=== PATIENT | female | born 1935 | race Caucasian/White ===

== ENCOUNTER 2017-07-25 10:10 | Inpatient (IN) | payer MEDICARE ==
[2017-07-25 11:04] LABS: #Basophils 0.1 thou/uL (0.0-0.2); #Eosinphils 0.1 thou/uL (0.0-0.7); #Lymphocytes 1.6 thou/uL (1.20-3.40); #Monocytes 0.7 thou/uL (0.11-0.59); #Neutrophils 8.7 thou/uL (1.40-6.50); %Basophils 0.8 % (0.0-1.0); %Eosinophils 1.1 % (0.0-10.0); %Lymphocytes 14.4 % (21.0-51.0); %Monocytes 6.6 % (0.0-10.0); Hematocrit 43.8 % (36.0-47.0); Mean Platelet Volume 6.7 fL (7.4-10.4); Red Blood Cell (RBC) Count 4.77 mill/uL (4.20-5.40); White Blood Cell (WBC) Count 11.3 thou/uL (4.8-10.8)
[2017-07-25 11:23] LABS: ALT (SGPT) 15 U/L (8-55); AST (SGOT) 21 U/L (5-34); Alkaline Phosphatase 47 U/L (40-150); Anion Gap 12 mmol/L (10-20); BUN (Urea Nitrogen) 22 mg/dL (9.8-20.1); Bilirubin, Total 0.3 mg/dL (0.2-1.2); Calc. Creatinine Clearance 0 mL/min (70-130); Calcium 9.2 mg/dL (7.8-10.44); Carbon Dioxide 21 mmol/L (23-31); Chloride 107 mmol/L (98-107); Estimated GFR-MDRD 40; Globulin 3.4 g/dL (2.4-3.5); Protein, Total 7.1 g/dL (6.0-8.3)
[2017-07-25 11:27] LABS: PTT 24.1 SEC (22.9-36.1); Prothrombin Time 13.8 SEC (12.0-14.7)
[2017-07-25 12:03] LABS: Troponin I Less than 0.010 ng/mL (< 0.028)
--- NOTE | 2017-07-25 13:06 | CT ---
CT OF THE BRAIN WITHOUT CONTRAST: Date: 07/25/17 COMPARISON: None. HISTORY: Syncope. Lightheadedness and dizziness. TECHNIQUE: Multiple contiguous axial images were obtained in a CT of the brain without contrast. FINDINGS: There are scattered hypodensities in the subcortical and periventricular white matter. 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 There is no perico dence of hydrocephalus, intracranial hemorrhage, or extra-axial fluid collection. No new large confl uent infarction is seen. The calvarium and overlying soft tissues are unremarkable. The visualized paranasal sinuses and mast oid air cells are well aerated. IMPRESSION: No evidence of acute intracranial abnormality. POS: [facility]
--- NOTE | 2017-07-25 13:08 | RAD ---
SINGLE VIEW OF CHEST: Date: 07/25/17 COMPARISON: None. HISTORY: Syncope and fall. FINDINGS: Single view of the chest shows a normal sized cardiomediastinal silhouette. There is no evidence of consolidation, mass, or pleural effusion. The bones are unremarkable. IMPRESSION: No evidence of acute cardiopulmonary disease. POS: [facility]
[2017-07-25 13:47] LABS: Bilirubin Negative (Negative); Blood, Urine Negative (Negative); Glucose, Urine (Dipstick) Negative (Negative); Ketone, Urine Negative (Negative); Nitrite Positive (Negative); Protein, Urine (Dipstick) Trace mg/dL (Neg-Trace); Urobilinogen 0.2 mg/dL (0.2-1.0)
[2017-07-25 13:51] LABS: Bacteria/HPF 1+ HPF (None Seen); RBC/HPF 0-3 HPF (0-3); Squamous Epithelial 0-3 HPF (0-3)
[2017-07-25 13:53] LABS: Hyaline Casts/LPF 0-3 HYALINE CAST LPF (0-3 Hyaline)
[2017-07-25 14:26] LABS: ALT (SGPT) 18 U/L (8-55); AST (SGOT) 30 U/L (5-34); Alkaline Phosphatase 46 U/L (40-150); Anion Gap 15 mmol/L (10-20); BUN (Urea Nitrogen) 22 mg/dL (9.8-20.1); Bilirubin, Total 0.2 mg/dL (0.2-1.2); Calc. Creatinine Clearance 0 mL/min (70-130); Calcium 9.2 mg/dL (7.8-10.44); Carbon Dioxide 20 mmol/L (23-31); Chloride 106 mmol/L (98-107); Estimated GFR-MDRD 46; Globulin 3.9 g/dL (2.4-3.5); Magnesium 2.5 mg/dL (1.6-2.6); Protein, Total 7.7 g/dL (6.0-8.3); Troponin I Less than 0.010 ng/mL (< 0.028)
[2017-07-25] MEDS ORDERED: traZODone HCl 50 MG TAB PO PRN (15:00)
[2017-07-25] MEDS ORDERED: Loperamide HCl 2 MG CAP PO PRN (15:00)
[2017-07-25] MEDS ORDERED: Ondansetron HCl/PF 4 MG/2 ML Vial IVP PRN (15:00)
[2017-07-25] MEDS ORDERED: Milk Of Magnesia 30 ML UDCUP PO PRN (15:00)
[2017-07-25] MEDS ORDERED: Mag-Al 1200 mg/1200 mg/30 ML UDCUP PO PRN (15:00)
[2017-07-25] MEDS ORDERED: Nitroglycerin 0.4 MG TAB (25 Tab Bottle) SL PRN (15:00)
[2017-07-25] MEDS ORDERED: Loratadine 10 MG TAB PO PRN (15:00)
[2017-07-25] MEDS ORDERED: HYDROcodone/Acetaminophen 5/325 mg Tablet PO PRN (15:00)
[2017-07-25] MEDS ORDERED: Artificial Tear Sol 15 ML BOT EA EYE PRN (15:00)
[2017-07-25] MEDS ORDERED: Sodium Chloride 0.65% Nasal 44 ML BOT EA NARE PRN (15:00)
[2017-07-25] MEDS ORDERED: Senokot 8.6 MG TAB PO PRN (15:00)
[2017-07-25] MEDS ORDERED: Eucerin (Mineral Oil/Petrolatum,White) 30 gm Jar TOP PRN (15:00)
[2017-07-25] MEDS ORDERED: Ondansetron ODT 4 MG TAB PO PRN (15:00)
[2017-07-25] MEDS ORDERED: Diabetic Tussin 200 MG/10 ML UDCUP PO PRN (15:00)
[2017-07-25] MEDS ORDERED: Zolpidem Tartrate 5 MG TAB PO PRN (15:00)
--- NOTE | 2017-07-25 15:58 | HP ---
PRIMARY CARE PHYSICIAN: Dr. Bhanu Luis in [facility] in [place]. REASON FOR ADMISSION: Syncope. HISTORY OF PRESENT ILLNESS: An 82-year-old female who has history of hypertension who is visiting locally to her daughter. This morning around 8:30 , she was seated in the chair. All of suddenly, she felt lightheaded and dizzy , and she passed out. The patient remained passed out for a period of time about few minutes. At that time, patient was groggy, just like postictal phase. Family member does not know about focal tonic clonic seizure activity. Paramedics were called and when the paramedics came to her home, at that time, she was awake, but lethargic and weak. Family member also reported that she had one episode of vomiting. Paramedics reported that patient had very low blood pressure at her home. With these symptoms, she was brought to emergency room for evaluation. Patient also had similar type of problem few months ago. At that time, she was hospitalized in [place] and full workup was done. Family member reported that at that time patient was found with right carotid stenosis, required carotid endarterectomy and patient is taking blood thinner medicine. The patient denies any nausea. She denies any chest pain, palpitation. She denies any UTI symptoms. She denies any constipation, diarrhea, melena or hematochezia. She denies any cough, pleuritic chest pain, hemoptysis, fever or chills. Paramedics gave her about 1 liter of IV fluid. When she came to emergency room , she was normotensive. Routine blood tests showed elevated D-dimer and that is why the patient is getting CT angio by the time of dictation. Patient is completely normal at this point, unable to provide all detailed history, the patient does not have any recall of that event, but when she regained consciousness since then, she remembers everything. She denies any focal motor or sensory symptoms. She denies any headache. She denies any speech problem. REVIEW OF SYSTEMS: The following complete review of systems was negative, unless otherwise mentioned in the HPI or below: Constitutional: Weight loss or gain, ability to conduct usual activities. Skin: Rash, itching. Eyes: Double vision, pain. ENT/Mouth: Nose bleeding, neck stiffness, pain, tenderness. Cardiovascular: Palpitations, dyspnea on exertion, orthopnea. Respiratory: Shortness of breath, wheezing, cough, hemoptysis, fever or night sweats. Gastrointestinal: Poor appetite, abdominal pain, heartburn, nausea, vomiting, constipation, or diarrhea. Genitourinary: Urgency, frequency, dysuria, nocturia. Musculoskeletal: Pain, swelling. Neurologic/Psychiatric: Anxiety, depression. Allergy/Immunologic: Skin rash, bleeding tendency. Please see my HPI for pertinent positive and negative. All other review of systems reviewed and negative except as mentioned in the HPI. PAST MEDICAL HISTORY: Coronary artery disease, history of CHF, type CHF is not known because patient is not able to provide detailed history about echocardiography, hypertension, dyslipidemia, history of CVA, history of seizure , history of carotid stenosis, hypothyroidism. PAST PSYCHIATRIC HISTORY: Anxiety, depression, and insomnia. PAST SURGICAL HISTORY: Right carotid endarterectomy, cholecystectomy, appendicectomy, hysterectomy, tonsillectomy, right hip surgery, right arm and left wrist surgery, lumbar spine surgery. SOCIAL HISTORY: Patient lives at home, currently visiting in our town. No history of tobacco, alcohol or illicit drug abuse. FAMILY HISTORY: No strong family history of premature coronary artery disease, stroke or cancer. ALLERGIES: No known drug allergies. CURRENT HOME MEDICATIONS: Lipitor 10 mg p.o. at bedtime, hydralazine 100 mg p.o. daily, Synthroid 25 mcg p.o. daily, lisinopril 40 mg p.o. daily, metoprolol tartrate 50 mg p.o. daily, Seroquel 50 mg p.o. at bedtime., sulfasalazine 1 gram p.o. b.i.d., trazodone 50 mg q.6 hourly p.r.n., Ambien 10 mg p.o. at bedtime p.r.n., ropinirole 0.5 mg p.o. daily, and Primidone 50 mg p.o. daily. EMERGENCY ROOM COURSE: Reviewed. PHYSICAL EXAMINATION: VITAL SIGNS: On arrival, blood pressure 117/41, pulse 57, respiratory rate 18, temperature 98.0, saturation 92% on room air, weight 61.2 kilograms. GENERAL: Patient is currently alert, awake, no obvious acute distress. HEAD: Normocephalic, atraumatic. EYES: Pupils round, reactive to light. Extraocular muscle intact. ENT: Oropharynx within normal limits. Moist mucous membranes. No oral lesions. No pharyngeal erythema, no exudate. NECK: Supple. The patient does have a scar for right carotid endarterectomy on the right side. No JVD. No lymphadenopathy, no meningeal signs of irritation. No spinal tenderness. LUNGS: Clear to auscultation without any rhonchi or rales. CARDIAC: S1, S2 regular. Unable to elicit any murmur, no gallop, no rub. ABDOMEN: Soft, bowel sounds present, nontender, nondistended. No organomegaly , no mass, no suprapubic tenderness. BACK: Examination unremarkable, no CVA tenderness. EXTREMITIES: Upper extremity passive movements of all joints are normal. Lower extremity, passive movement of all joints are normal. No edema, good peripheral pulsation. SKIN: No skin rash. HEMATOLOGICAL SYSTEM: No lymphadenopathy. PSYCHIATRIC: Normal affect. IMAGING AND SIGNIFICANT LABORATORY DATA: 1. EKG based on my review reveals normal sinus rhythm within normal limits. CT brain based on my review, no acute intracranial process. Chest x-ray based on my review, no acute cardiopulmonary process. We are going to do CT angiography and result is pending by the time of dictation. 2. CBC: WBC 11.3, hemoglobin 14.2, and platelet 295. INR 1.0. D-dimer 1.04. BMP: Sodium 136, potassium 4.1, chloride 107, carbon dioxide 21, anion gap 12 , BUN 22, creatinine 1.27, glucose 143, calcium 9.2, magnesium 2.1. 3. LFT: AST 21, ALT 15, alkaline phosphatase 47, albumin 3.7, CK-MB 2.6, troponin I less than 0.010. ASSESSMENT AND PLAN/IMPRESSION: 1. Syncope/seizure. Based on patient's current description, patient was syncopized while seated and she had little bit prolonged postictal type of face and she has suspected history of generalized seizure as well. Given these, I will keep this patient on telemetry floor for observation. We will do cardiac monitoring to rule out any arrhythmia. We will check orthostatic vitals to rule out orthostatic hypotension, that is also another possibility. I will check CK, lactic acid and prolactin level as indirect marker of seizure. If abnormal, then we will consider Neurology evaluation, we are also doing CT angio to rule out PE given elevated D-dimer. We are going to obtain echocardiography for cardiac workup. We will also obtain carotid ultrasound to rule out any carotid stenosis. Further evaluation will defer based on above- mentioned investigation result. 2. Elevated D-dimer. As mentioned above, we are going to do CT angio to rule out pulmonary embolism. Patient does not have any calf tenderness, does not have any edema. 3. Chronic kidney disease stage 3. Patient does have elevated BUN and creatinine ratio, but patient already received IV fluids and given her history of congestive heart failure, I will avoid giving her more fluid, the patient's blood pressure is also normalized and will repeat basic metabolic panel tomorrow. 4. Dyslipidemia. We will check total CK and will continue with Lipitor 10 mg p.o. at bedtime. We will check lipid profile tomorrow morning for risk stratification. 5. Hypertension. Currently, the patient's blood pressure runs low and that is why we will check orthostatic hypotension and based on her vitals, we will decide to start one by one antihypertensive medication and we will titrate blood pressure medication while in hospital. 6. Hypothyroidism. We will continue Synthroid 25 mcg p.o. daily. 7. History of congestive heart failure, uncertain type of EF, we are going to obtain echocardiography and we will continue lisinopril and metoprolol when blood pressure permits. The patient is currently euvolemic clinically and I will also check BNP, history of carotid stenosis and required carotid endarterectomy. We will check carotid ultrasound and continue aspirin 81 mg p.o. daily. 8. History of anxiety and depression. The patient is taking Seroquel, trazodone, and Ambien at home which we will continue while in hospital. 10. ? history of Parkinson's. Patient is on ropinirole and primidone, we will continue that medication. 11. Deep venous thrombosis prophylaxis not needed because we are expecting discharge in 24 hours. 12. Gastrointestinal prophylaxis, Pepcid 20 mg p.o. b.i.d. 13. Code status: The patient is FULL CODE. Patient's daughter is surrogate decision maker. Disposition and plan within 24 hours. [facility]
--- NOTE | 2017-07-25 16:13 | CT ---
CTA OF THE CHEST WITH CONTRAST: Date: 07/25/17 COMPARISON: None. HISTORY: Syncope, lightheadedness, and dizziness. TECHNIQUE: Multiple contiguous axial images were obtained in a CTA of the chest with contrast per pulmonary emb olism protocol. 3D oblique MIP reformats and direct coronal reformats were performed. FINDINGS: The pulmonary arteries are well opacified without filling defects to suggest pulmonary emboli. The h eart is normal in size without focal cardiac abnormality. No hilar or mediastinal lymphadenopathy se en. There is a moderate to large hiatal hernia. A calcified granuloma is seen in the superior aspect of the left lower lobe. There is ground-glass opacity in the right hilar region which may represent an infiltrate. This looks non mass-like. No pn eumothorax or pleural effusion are seen. The central airways are intact without evidence of debris w ithin the airways. There is a nonobstructing calcification in the right kidney. The other visualized subdiaphragmatic structures are unremarkable. Degenerative changes are seen in the spine. The chest wall soft tissues are unremarkable. IMPRESSION: 1. No evidence of pulmonary thromboembolism. 2. Ground-glass opacities in the right hilar region may represent infectious infiltrate. This could also be secondary to aspiration. 3. Hiatal hernia. 4. Nonobstructing right renal calcification. POS: [facility]
[2017-07-25] MEDS ORDERED: sulfaSALAzine 500 MG TAB PO SCH (17:00)
[2017-07-25 17:09] LABS: Troponin I 0.011 ng/mL (< 0.028)
[2017-07-25 20:28] LABS: Troponin I Less than 0.010 ng/mL (< 0.028)
[2017-07-25] MEDS: Atorvastatin Calcium 10 MG TAB PO SCH (21:07)
[2017-07-25] MEDS: Acetaminophen 325 MG TAB PO PRN (21:13)
[2017-07-26] MEDS: Levothyroxine Sodium 25 MCG TAB PO SCH (05:24)
[2017-07-26 06:24] LABS: #Eosinphils 0.1 thou/uL (0.0-0.7); #Lymphocytes 2.7 thou/uL (1.20-3.40); #Monocytes 1.5 thou/uL (0.11-0.59); %Basophils 0.3 % (0.0-1.0); %Eosinophils 0.5 % (0.0-10.0); %Lymphocytes 20.4 % (21.0-51.0); %Monocytes 11.3 % (0.0-10.0); Hematocrit 36.6 % (36.0-47.0); Mean Platelet Volume 7.1 fL (7.4-10.4); Red Blood Cell (RBC) Count 4.03 mill/uL (4.20-5.40); White Blood Cell (WBC) Count 13.3 thou/uL (4.8-10.8)
[2017-07-26 06:43] LABS: Anion Gap 10 mmol/L (10-20); BUN (Urea Nitrogen) 21 mg/dL (9.8-20.1); Calc. Creatinine Clearance 43 mL/min (70-130); Carbon Dioxide 22 mmol/L (23-31); Chloride 106 mmol/L (98-107); Cholesterol 155 mg/dl (< 200 Desired); Estimated GFR-MDRD 58; LDL Cholesterol, Calculated 91 mg/dL
--- NOTE | 2017-07-26 07:37 | ULT ---
ULTRASOUND WITH DOPPLER DUPLEX CAROTID: Date: 07/25/17 HISTORY: 82-year-old female status post syncope. TECHNIQUE: Chin scale, color flow, and spectral analysis of major arteries of the neck. FINDINGS: Mild plaque is visualized at the right carotid bulb. The highest peak systolic velocity in the right internal carotid artery is 115 cm/s, with an endo-diastolic velocity of 30 cm/s. Right ICA/CCA rati o is 0.8. The right vertebral artery flow is antegrade. Heavily calcified plaque is present at the left carotid bulb. Blood flow is demonstrated in branches of the left external carotid artery. There is what appears to be bidirectional flow and a possible preocclusive thump at the very proximal left internal carotid artery stump. The left vertebral arter y flow is antegrade. IMPRESSION: 1. Large plaque at the left carotid bifurcation. 2. 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 3. No hemodynamically significant stenosis in the right internal carotid artery. POS: [facility]
--- NOTE | 2017-07-26 09:08 | PDOC.PN ---
- Subjective Encounter Start Date: 07/26/17 Encounter Start Time: 09:06 Subjective: Generalized weakness -: No lightheadedness,dizzines,f/c/,cp/sob - Objective Resuscitation Status: Resuscitation Status FULL:Full Resuscitation MAR Reviewed: Yes Vital Signs & Weight: Vital Signs (12 hours) Temp Pulse Resp BP BP BP Pulse Ox 07/26/17 04:00 98.1 F 61 16 121/58 L 117/57 L 102/51 L 92 L 07/25/17 23:44 99.2 F Weight Weight 126 lb 14.4 oz I&O: 07/25/17 07/26/17 07/27/17 06:59 06:59 06:59 Intake Total 620 Balance 620 Result Diagrams: 07/26/17 05:27 07/26/17 05:27 Phys Exam - Physical Examination Constitutional: NAD HEENT: PERRLA, moist MMs Neck: no nodes, no JVD Respiratory: no wheezing, no rales, clear to auscultation bilateral Cardiovascular: RRR, no significant murmur Gastrointestinal: soft, non-tender, positive bowel sounds Neurological: non-focal, moves all 4 limbs Psychiatric: normal affect Skin: no rash, normal turgor Dx/Plan (1) Syncope Code(s): R55 - SYNCOPE AND COLLAPSE Status: Acute - Plan Syncope vs. Seizure * will consult neurology (post ictal state described in H&P) * ECHO: pending * CT brain: no actue issue * CXR: no infiltrate * Elevated D dimer - CT angio: no PE * Carotid Dopplers: Large plaque at Left Carotid bifurcation, total/near complete occlusion of left ICA - will consult CV surgery * continue ASA and Statin * check labs in AM Dispo: continue inpt.
[2017-07-26] MEDS: Famotidine 20 MG TAB PO SCH (09:24)
--- NOTE | 2017-07-26 17:14 | CON ---
DATE OF CONSULTATION: 07/26/2017 HISTORY OF PRESENT ILLNESS: Ms. Ho is an 82-year-old woman who was admitted with syncope and h ypotension. She was rehydrated in the ambulance on the way here and has been normotensive with a no rmal neurologic exam since she has been admitted. Of note, she had a right carotid endarterectomy i [facility] recently. She has had a carotid ultrasound performed since she has been here that s hows a chronically occluded left carotid system with a widely patent right carotid. The patient has had no focal lateralizing neurologic symptoms since she has been here. PAST MEDICAL HISTORY: 1. Coronary artery disease. 2. Congestive heart failure. 3. Hypertension. 4. Dyslipidemia. 5. History of seizure. 6. Carotid stenosis status post right carotid endarterectomy. 7. Hypothyroidism. PAST SURGICAL HISTORY: 1. Right carotid endarterectomy. 2. Cholecystectomy. 3. Appendectomy. 4. Hysterectomy. 5. Tonsillectomy. 6. Right hip surgery. 7. Right arm and left wrist surgery. 8. Lumbar spine surgery. SOCIAL HISTORY: The patient lives at home and is currently visiting her daughter. She has no histo ry of tobacco or alcohol use. ALLERGIES: None. CURRENT MEDICATIONS: Noted. PHYSICAL EXAMINATION: GENERAL: This is an elderly woman resting comfortably in bed. VITAL SIGNS: Her height is 5 feet 2 inches, weight is 126 pounds, temperature is 98.8, pulse is 71 and regular and blood pressure is 171/75. NECK: Supple. Right carotid incision is healing nicely. CHEST: Clear bilaterally. HEART: Rhythm is regular. ABDOMEN: Soft. EXTREMITIES: No edema. ASSESSMENT AND PLAN: Status post right carotid endarterectomy with a widely patent right carotid sy stem and a chronically occluded left carotid. RECOMMENDATIONS: Medical treatment as is being carried out.
[2017-07-26] MEDS: Atorvastatin Calcium 10 MG TAB PO SCH (20:20)
[2017-07-26] MEDS: Acetaminophen 325 MG TAB PO PRN (20:20)
--- NOTE | 2017-07-27 00:48 | CON ---
DATE OF CONSULTATION: 07/26/2017 REFERRING PROVIDER: Tomas Soliz M.D. REASON FOR CONSULTATION: Syncope. HISTORY OF PRESENT ILLNESS: Ms. Ho is a pleasant 82-year-old female who has been con sulted for evaluation of syncopal event. History is obtained from the daughter who is present at e bedside. Daughter reports that yesterday morning she ate her breakfast and was sitting on the bianca ir and suddenly slumped over. She was unresponsive for a few minutes. There were no tonic-clonic c onvulsions. There was no tongue biting or loss of bowel or bladder function noted at that time. Th e daughter reported that prior to this event, she did vomit on 1-2 occasions and she has been having a low-grade fever during that time. She reports that she has a history of seizures sporadically ov er the past 5 years or so. Her last episode was in 2013. She has seen a neurologist in the past an d was noted to be started on primidone for her seizures. She also reports of having completely occl uded left internal carotid artery. In the past, she is also noted to have right ICA stenosis, for w isauroh she has undergone carotid endarterectomy. 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 She states that when the paramedics arrived on yesterday after they had called the EMS, they noticed that her blood pressure was very low. She does report of feeling better today and back to her normal self on today compared to yesterday. PAST MEDICAL HISTORY: Significant for hypertension, carotid artery disease, coronary artery disease , CHF, history of stroke, history of seizure, hypothyroidism, history of tremors. PAST SURGICAL HISTORY: Significant for right carotid endarterectomy, cholecystectomy, appendectomy, hysterectomy, tonsillectomy, right hip surgery, right arm and left wrist surgery, lumbar spine surg rupesh. SOCIAL HISTORY: She denies smoking, alcohol use, or illicit drug use. FAMILY HISTORY: Noncontributory. CURRENT MEDICATIONS: Please review MAR. ALLERGIES: No known drug allergies. REVIEW OF SYSTEMS: As mentioned in the HPI, otherwise negative. PHYSICAL EXAMINATION: VITAL SIGNS: Blood pressure of 170/73, pulse of 84, temperature of 100.3, respirations of 18, O2 sa ts of 94% on room air. GENERAL: Well-developed, well-nourished female in no apparent distress. RESPIRATORY: Clear to auscultation bilaterally. CARDIOVASCULAR: Regular rate and rhythm. NEUROLOGIC: Mental status: The patient is awake, alert, oriented x3. Speech and language: Fluent speech. Cranial nerves: Pupils are 3 mm and reactive. Visual stout are intact. Extraocular mus cles are intact. No nystagmus is noted. Face is symmetric. Tongue and uvula are midline. Motor e xam showed normal tone and bulk with 5/5 strength in both upper and lower extremities. Sensory: Se nsation is intact and symmetric. Deep tendon reflexes: 1-2+ reflexes in both upper and lower extre mities. Babinski: Plantar responses flexion bilaterally. Coordination: Intact to [id number] valentine tapping bilaterally. LABORATORY DATA: Reviewed, which included CBC, coag panel, D-dimer, CMP, lipid profile, and urinaly sis which is significant for WBC of 13.3, D-dimer of 0.84, sodium of 134, triglycerides of 165. Uri nalysis showed positive nitrites, large leukocyte esterase, greater than 50 to too numerous to count wbc's, and 1+ bacteria. IMAGING STUDIES: CT head without contrast was reviewed, which showed no acute intracranial abnormal ity. IMPRESSION: 1. Urinary tract infection. 2. Possible sepsis. 3. Syncope, likely related to possible sepsis. ASSESSMENT AND PLAN: Ms. Ho is a pleasant 82-year-old female who presented with a sy ncopal episode. Given the description of the patient's daughter and the fact that her blood pressur e was very low when EMS arrived, this is likely related to hypotension and not a seizure. I would r ecommend obtaining urine cultures and starting the patient on antibiotics for urinary tract infectio n. I have advised the patient's daughter that she needs to follow up with her neurologist as an out patient once discharged from the hospital to adjust her anti-seizure medications. No further neurol ogical workup needed from my standpoint. Thank you for your consultation.
[2017-07-27] MEDS: Levothyroxine Sodium 25 MCG TAB PO SCH ×2 (05:53→09:08)
[2017-07-27 06:04] LABS: #Eosinphils 0.2 thou/uL (0.0-0.7); #Lymphocytes 2.5 thou/uL (1.20-3.40); #Monocytes 1.4 thou/uL (0.11-0.59); #Neutrophils 6.6 thou/uL (1.40-6.50); %Basophils 0.4 % (0.0-1.0); %Eosinophils 1.7 % (0.0-10.0); %Lymphocytes 23.7 % (21.0-51.0); Hematocrit 36.5 % (36.0-47.0); Mean Platelet Volume 6.8 fL (7.4-10.4); Red Blood Cell (RBC) Count 4.03 mill/uL (4.20-5.40); White Blood Cell (WBC) Count 10.7 thou/uL (4.8-10.8)
[2017-07-27 06:08] LABS: Hemoglobin A1c 5.5 % (4.0-6.0)
[2017-07-27 06:33] LABS: Anion Gap 10 mmol/L (10-20); BUN (Urea Nitrogen) 16 mg/dL (9.8-20.1); Calc. Creatinine Clearance 44 mL/min (70-130); Calcium 8.9 mg/dL (7.8-10.44); Carbon Dioxide 25 mmol/L (23-31); Chloride 107 mmol/L (98-107); Cholesterol 166 mg/dl (< 200 Desired); Estimated GFR-MDRD 62; LDL Cholesterol, Calculated 109 mg/dL; Magnesium 1.9 mg/dL (1.6-2.6)
--- NOTE | 2017-07-27 08:20 | PDOC.PN ---
- Subjective Encounter Start Date: 07/27/17 Encounter Start Time: 08:16 Subjective: No Lightheadedness/LAMAR/blurry vision/dizziness -: No cp/palpitations - Objective Resuscitation Status: Resuscitation Status FULL:Full Resuscitation MAR Reviewed: Yes Vital Signs & Weight: Vital Signs (12 hours) Temp Pulse Resp BP Pulse Ox 07/27/17 04:00 98.4 F 74 20 131/59 L 95 07/27/17 00:00 99.1 F 74 16 142/65 H 96 Weight Weight 126 lb I&O: 07/26/17 07/27/17 07/28/17 06:59 06:59 06:59 Intake Total 620 1300 Output Total 4 Balance 620 1296 Result Diagrams: 07/27/17 05:38 07/27/17 05:38 Phys Exam - Physical Examination Constitutional: NAD HEENT: PERRLA, moist MMs Neck: no nodes, no JVD Respiratory: no wheezing, no rhonchi Cardiovascular: RRR, no significant murmur Gastrointestinal: soft, non-tender, positive bowel sounds Neurological: non-focal, moves all 4 limbs Skin: no rash, normal turgor Dx/Plan (1) Syncope Code(s): R55 - SYNCOPE AND COLLAPSE Status: Acute - Plan Syncope 2/2 Dehydration and UTI * neurology consulted - synocpe likely 2/2 to hypotension/UTI and not seizure - needs outpt neuro f/u for seizure medication monitoring * ECHO: EF 60-65% * CT brain: no actue issue * CXR: no infiltrate * Elevated D dimer - CT angio: no PE * Carotid Dopplers: Large plaque at Left Carotid bifurcation, total/near complete occlusion of left ICA - medical management recommended by CV surgery * continue ASA and Statin * check Urine cx * start Emperic Abx: Ceftriaxone * check labs in AM Dispo: continue inpt.
[2017-07-27] MEDS ORDERED: Non-Formulary Item 1 EACH (Lisinopril [Lisinopril] 40 MG) PO SCH (09:00)
[2017-07-27] MEDS ORDERED: Non-Formulary Item 1 EACH (Hydralazine Hcl [Hydralazine Hcl] 100 MG) PO SCH (09:00)
[2017-07-27] MEDS: Atorvastatin Calcium 10 MG TAB PO SCH ×2 (09:07→21:11)
[2017-07-27] MEDS: Famotidine 20 MG TAB PO SCH (09:07)
[2017-07-27] MEDS: hydrALAZINE 25 MG TAB PO SCH ×3 (09:08→21:10)
[2017-07-27] MEDS: Metoprolol Tartrate 50 MG TAB PO SCH ×2 (09:09→21:16)
[2017-07-27] MEDS: rOPINIRole HCl 0.5 MG TAB PO SCH ×3 (09:09→21:11)
[2017-07-27] MEDS: TICAGRELOR 90 MG TABLET PO SCH ×2 (09:09→21:10)
[2017-07-27] MEDS: Lisinopril 20 MG TAB PO SCH ×2 (09:09→21:16)
[2017-07-27] MEDS: Primidone 50 MG TAB PO SCH ×3 (09:09→21:16)
[2017-07-27] MEDS: cefTRIAXone\\ROCEPHIN 1 GM in Sodium Chloride 0.9% 100 ML IVPB SCH (09:10)
[2017-07-27] MEDS: hydrALAZINE 20 MG/ML VIAL SLOW IVP PRN (18:15)
[2017-07-27] MEDS: Acetaminophen 325 MG TAB PO PRN (18:16)
[2017-07-27] MEDS: traZODone HCl 50 MG TAB PO SCH (21:11)
[2017-07-28] MEDS: Acetaminophen 325 MG TAB PO PRN ×2 (04:42→18:58)
[2017-07-28] MEDS: Levothyroxine Sodium 25 MCG TAB PO SCH ×2 (04:42→09:42)
[2017-07-28 06:27] LABS: #Eosinphils 0.4 thou/uL (0.0-0.7); #Lymphocytes 2.5 thou/uL (1.20-3.40); #Monocytes 1.1 thou/uL (0.11-0.59); %Basophils 0.4 % (0.0-1.0); %Eosinophils 4.8 % (0.0-10.0); %Lymphocytes 27.6 % (21.0-51.0); %Monocytes 12.5 % (0.0-10.0); Hematocrit 36.2 % (36.0-47.0); Red Blood Cell (RBC) Count 3.98 mill/uL (4.20-5.40); White Blood Cell (WBC) Count 9.2 thou/uL (4.8-10.8)
[2017-07-28 06:43] LABS: Anion Gap 10 mmol/L (10-20); BUN (Urea Nitrogen) 12 mg/dL (9.8-20.1); Calc. Creatinine Clearance 49 mL/min (70-130); Carbon Dioxide 24 mmol/L (23-31); Chloride 106 mmol/L (98-107); Estimated GFR-MDRD 68; Magnesium 1.7 mg/dL (1.6-2.6)
--- NOTE | 2017-07-28 08:03 | PDOC.PN ---
- Subjective Encounter Start Date: 07/28/17 Encounter Start Time: 08:02 Subjective: Lightheaded on standing -: No f/c -: No n/v - Objective Resuscitation Status: Resuscitation Status FULL:Full Resuscitation MAR Reviewed: Yes Vital Signs & Weight: Vital Signs (12 hours) Temp Pulse Resp BP Pulse Ox 07/28/17 07:48 99.3 F 69 18 150/64 H 93 L 07/28/17 04:45 98.6 F 67 148/66 H 95 07/27/17 20:05 98.9 F 84 16 Weight Weight 128 lb 8 oz I&O: 07/27/17 07/28/17 07/29/17 06:59 06:59 06:59 Intake Total 1300 1660 Output Total 4 200 Balance 1296 1460 Result Diagrams: 07/28/17 05:39 07/28/17 05:39 Phys Exam - Physical Examination Constitutional: NAD HEENT: PERRLA, moist MMs Neck: no nodes, no JVD Respiratory: no wheezing, no rhonchi Cardiovascular: RRR, no significant murmur Gastrointestinal: soft, non-tender, positive bowel sounds Neurological: non-focal, moves all 4 limbs Psychiatric: normal affect Skin: no rash, normal turgor Dx/Plan (1) Syncope Code(s): R55 - SYNCOPE AND COLLAPSE Status: Acute - Plan Syncope 2/2 Dehydration, Orthostatic Hypotension and UTI * neurology consulted - synocpe likely 2/2 to hypotension/UTI and not seizure - needs outpt neuro f/u for seizure medication monitoring * ECHO: EF 60-65% * CT brain: no actue issue * CXR: no infiltrate * Elevated D dimer - CT angio: no PE * Carotid Dopplers: Large plaque at Left Carotid bifurcation, total/near complete occlusion of left ICA - medical management recommended by CV surgery * continue ASA and Statin * Urine cx: mixed - will treat with 3 days of abx based on clinical presentation (Day 2/3 Abx) * Orthostatic VS positive (SBP dropped from 150's lying to 100's on standing) - start IVFs, re-check orthostatics this evening. * check labs in AM Dispo: continue inpt.
[2017-07-28] MEDS: Sodium Chloride 0.9% 1,000 ML IV SCH ×2 (09:40→22:20)
[2017-07-28] MEDS: TICAGRELOR 90 MG TABLET PO SCH ×2 (09:41→22:17)
[2017-07-28] MEDS: Primidone 50 MG TAB PO SCH ×3 (09:41→22:17)
[2017-07-28] MEDS: Metoprolol Tartrate 50 MG TAB PO SCH ×2 (09:42→22:18)
[2017-07-28] MEDS: hydrALAZINE 25 MG TAB PO SCH ×3 (09:42→22:17)
[2017-07-28] MEDS: Atorvastatin Calcium 10 MG TAB PO SCH ×2 (09:42→22:18)
[2017-07-28] MEDS: rOPINIRole HCl 0.5 MG TAB PO SCH ×3 (09:42→22:16)
[2017-07-28] MEDS: Lisinopril 20 MG TAB PO SCH ×2 (09:45→22:18)
[2017-07-28] MEDS: Famotidine 20 MG TAB PO SCH (09:45)
[2017-07-28] MEDS: cefTRIAXone\\ROCEPHIN 1 GM in Sodium Chloride 0.9% 100 ML IVPB SCH (10:10)
[2017-07-28] MEDS: hydrALAZINE 20 MG/ML VIAL SLOW IVP PRN (16:51)
[2017-07-28] MEDS ORDERED: Amlodipine 5 MG TAB PO SCH (18:30)
[2017-07-28] MEDS: traZODone HCl 50 MG TAB PO SCH (22:17)
[2017-07-29] MEDS: Levothyroxine Sodium 25 MCG TAB PO SCH (05:32)
[2017-07-29 06:44] LABS: #Eosinphils 0.5 thou/uL (0.0-0.7); #Lymphocytes 2.2 thou/uL (1.20-3.40); #Monocytes 0.9 thou/uL (0.11-0.59); #Neutrophils 3.3 thou/uL (1.40-6.50); %Basophils 0.4 % (0.0-1.0); %Eosinophils 6.7 % (0.0-10.0); %Lymphocytes 31.5 % (21.0-51.0); %Monocytes 12.5 % (0.0-10.0); Hematocrit 36.4 % (36.0-47.0); Mean Platelet Volume 7.2 fL (7.4-10.4); Red Blood Cell (RBC) Count 3.99 mill/uL (4.20-5.40); White Blood Cell (WBC) Count 6.8 thou/uL (4.8-10.8)
[2017-07-29 07:01] LABS: Anion Gap 8 mmol/L (10-20); BUN (Urea Nitrogen) 8 mg/dL (9.8-20.1); Calc. Creatinine Clearance 51 mL/min (70-130); Calcium 9.2 mg/dL (7.8-10.44); Carbon Dioxide 27 mmol/L (23-31); Chloride 106 mmol/L (98-107); Estimated GFR-MDRD 70
--- NOTE | 2017-07-29 07:51 | PDOC.PN ---
- Subjective Encounter Start Date: 07/29/17 Encounter Start Time: 07:51 Subjective: LAMAR with hypertensive episode yesterday -: Still with positive orthostatics -: Generalized weakness - Objective Resuscitation Status: Resuscitation Status FULL:Full Resuscitation MAR Reviewed: Yes Vital Signs & Weight: Vital Signs (12 hours) Temp Pulse Resp BP Pulse Ox 07/29/17 04:00 98.2 F 63 16 146/65 H 94 L 07/28/17 23:41 98.0 F 68 16 130/56 L 92 L Weight Weight 129 lb 9.6 oz I&O: 07/28/17 07/29/17 07/30/17 06:59 06:59 06:59 Intake Total 1660 1669 Output Total 200 1700 Balance 1460 -31 Result Diagrams: 07/29/17 05:47 07/29/17 05:47 Phys Exam - Physical Examination Constitutional: NAD HEENT: moist MMs, sclera anicteric Neck: no nodes, no JVD Respiratory: no wheezing, no rales Cardiovascular: RRR, no significant murmur Gastrointestinal: soft, non-tender, positive bowel sounds Neurological: non-focal, moves all 4 limbs Psychiatric: normal affect Skin: no rash, normal turgor Dx/Plan (1) Syncope Code(s): R55 - SYNCOPE AND COLLAPSE Status: Acute - Plan Syncope 2/2 Dehydration, Orthostatic Hypotension and UTI * neurology consulted - synocpe likely 2/2 to hypotension/UTI and not seizure - needs outpt neuro f/u for seizure medication monitoring * ECHO: EF 60-65% * CT brain: no actue issue * CXR: no infiltrate * Elevated D dimer - CT angio: no PE * Carotid Dopplers: Large plaque at Left Carotid bifurcation, 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 * check labs in AM Dispo: continue inpt.
[2017-07-29] MEDS: Amlodipine 5 MG TAB PO SCH (09:59)
[2017-07-29] MEDS: Lisinopril 20 MG TAB PO SCH (10:00)
[2017-07-29] MEDS: hydrALAZINE 25 MG TAB PO SCH ×3 (10:02→20:35)
[2017-07-29] MEDS: Famotidine 20 MG TAB PO SCH (10:03)
[2017-07-29] MEDS: rOPINIRole HCl 0.5 MG TAB PO SCH ×3 (10:04→20:36)
[2017-07-29] MEDS: TICAGRELOR 90 MG TABLET PO SCH ×2 (10:04→20:36)
[2017-07-29] MEDS: Primidone 50 MG TAB PO SCH ×3 (10:04→20:36)
[2017-07-29] MEDS: Metoprolol Tartrate 50 MG TAB PO SCH ×2 (10:04→20:37)
[2017-07-29] MEDS: cefTRIAXone\\ROCEPHIN 1 GM, Admixture Fee 1 EACH in Sodium Chloride 0.9% 100 ML IVPB SCH (10:27)
--- NOTE | 2017-07-29 10:34 | CON ---
DATE OF CONSULTATION: 07/29/2017 HISTORY OF PRESENT ILLNESS: Ms. Ho is an 82-year-old white female who was initially admitted f or a near syncopal episode. Her blood pressure was noted to be relatively low at that time. She fi rst complained of lightheadedness and dizziness. The patient has a longstanding history of hyperten kayla. At the hospital, she was noted to have labile hypertension. The issue is for better blood pr essure control. Although I do not think she has pheochromocytoma, I would at least rule her out - w ith a low suspicion for pheochromocytoma on my part. I did discuss with the nursing staff to do a 24-hour urine for fractionated metanephrine and catecho beth. Currently, she is feeling better. She denies any chest pain, dizziness, or shortness of br eath. REVIEW OF SYSTEMS: Positive for near syncopal episode, no nausea, no vomiting, or occasional dizzin ess. No diarrhea, no chest pain, no abdominal pain. Appetite and energy level is fair. No hematoc hezia, no melena, no hematemesis. No nausea, no sore throat, no diplopia, no diaphoresis, no palpit ations. Appetite is fair. Occasional joint pains, no new skin rash, no headache. MEDICATIONS: Amlodipine, Norvasc 5 mg tablet daily, Lipitor 10 mg at bedtime, ceftriaxone 1 gram q. 24 hours, Pepcid 20 mg tablet daily, hydralazine 100 mg p.o. t.i.d., Synthroid 25 mg p.o. daily, lis inopril 40 mg p.o. b.i.d., metoprolol 50 mg b.i.d., primidone 50 mg p.o. t.i.d., Requip 0.5 mg p.o. t.i.d., Brilinta 90 mg p.o. b.i.d., and trazodone 50 mg at bedtime. PAST MEDICAL HISTORY: History of labile hypertension, peripheral vascular disease, hyperlipidemia, coronary artery disease, status post CHF, status post CVA, seizure disorder, hypothyroidism. PAST SURGICAL HISTORY: 1. Status post cholecystectomy. 2. Status post appendectomy. 3. Status post hysterectomy. 4. Status post tonsillectomy. 5. Status post right hip surgery, right arm and left knee surgery. 6. Status post back surgery. 7. Status post right carotid endarterectomy. SOCIAL HISTORY: The patient is and lives at [place]. She has three children. 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 Education, high school. No smoking, no alcohol intake. Positive for blood tra nsfusion. ALLERGIES: None. TRAUMA: Status post left and right forearm fracture. IMMUNIZATIONS: Up to date. HOSPITALIZATIONS: Please see past medical history. FAMILY HISTORY: No family history of ESRD. Positive history of hypertension. PHYSICAL EXAMINATION: VITAL SIGNS: Blood pressure is 146/65, heart rate 63, respiratory rate 16, temperature 98.2, pulse ox 94%. Orthostatics; sitting 131/62, standing 127/57, supine is 169/67. GENERAL: Awake, comfortable, sitting, not in distress. SKIN: Adequate turgor. HEENT: Pinkish conjunctivae, anicteric sclerae. NECK: No neck mass, no carotid bruits, no JVD. CHEST: No deformities. LUNGS: Clear breath sounds, no wheezing, no crackles. HEART: Normal sinus rhythm. No murmur, no gallops or rubs. ABDOMEN: Globular, soft, nontender, no masses. EXTREMITIES: No edema. LABORATORY DATA AND X-RAY FINDINGS: LABORATORY DATA: Laboratories of 07/29/2017; white count 6.8, hemoglobin 12.1. Sodium is 137, potassium 4.1, chloride 106, carbon dioxide 27, BUN 8, creatinine 0 .79, calcium 9.2, and magnesium 2.0. Cardiac echo showed normal EF of 60%-65%. CT of the chest and thorax showed no evidence of PE, nonobstructing right renal calcification. ASSESSMENT AND PLAN: Labile hypertension - I doubt she has secondary hypertension. I do not think she has hyperaldosteronism due to the fact that the potassium is within normal as well I doubt for r enal artery stenosis since tolerating her maximum dose of lisinopril with a normal renal function. Hold off pheochromocytoma is a possibility. My suspicion is quite low with this. However, we will do screening tests. I have ordered 24-hour urine for fractionated metanephrines and catecholamines as a screening test. If needed, she could be further followed up by her family doctor at [facility] for the results. For the moment, continue current management. Continue current blood pressure meds. In the near future, I have not excluded starting her on clonidine patch for better pressure c ontrol if needed. Thank you for the consult. We will continue to follow.
[2017-07-29] MEDS: Acetaminophen 325 MG TAB PO PRN (11:47)
[2017-07-29] MEDS: traZODone HCl 50 MG TAB PO SCH (20:36)
[2017-07-29] MEDS: Atorvastatin Calcium 10 MG TAB PO SCH (20:36)
[2017-07-29] MEDS: Sodium Chloride 0.9% 1,000 ML IV SCH (22:17)
[2017-07-30 05:28] LABS: #Basophils 0.1 thou/uL (0.0-0.2); #Eosinphils 0.4 thou/uL (0.0-0.7); #Lymphocytes 2.7 thou/uL (1.20-3.40); #Monocytes 0.9 thou/uL (0.11-0.59); #Neutrophils 3.6 thou/uL (1.40-6.50); %Basophils 0.8 % (0.0-1.0); %Eosinophils 5.2 % (0.0-10.0); %Lymphocytes 35.6 % (21.0-51.0); %Monocytes 11.8 % (0.0-10.0); Hematocrit 35.5 % (36.0-47.0); Mean Platelet Volume 6.8 fL (7.4-10.4); Red Blood Cell (RBC) Count 3.88 mill/uL (4.20-5.40); White Blood Cell (WBC) Count 7.6 thou/uL (4.8-10.8)
[2017-07-30] MEDS: Levothyroxine Sodium 25 MCG TAB PO SCH (05:52)
[2017-07-30 05:55] LABS: Anion Gap 11 mmol/L (10-20); BUN (Urea Nitrogen) 12 mg/dL (9.8-20.1); Calc. Creatinine Clearance 50 mL/min (70-130); Calcium 8.7 mg/dL (7.8-10.44); Carbon Dioxide 23 mmol/L (23-31); Chloride 106 mmol/L (98-107); Estimated GFR-MDRD 68; Magnesium 1.9 mg/dL (1.6-2.6)
[2017-07-30 06:03] VITALS: BMI 24.0
--- NOTE | 2017-07-30 06:08 | CON ---
DATE OF CONSULTATION: 07/29/2017 CONSULTING PHYSICIAN: Dr. Magalys Delgado. REQUESTING PHYSICIAN: Dr. Tomas Soliz. REASON FOR CONSULTATION: Labile blood pressure. IMPRESSION: Labile hemodynamics with fluctuation between hypotension, symptomatic, to syncope, as w ell as severe systolic hypertension. This is possibly related to the patient's carotid disease as w ell as intravascular depletion and possible vasovagal reaction. PLAN: 1. Work towards streamlining this patient's antihypertensive regimen. We will change lisinopril to once a day as opposed to 40 mg b.i.d., especially in this patient who has had issues with hyperkale janice. 2. Discontinue current normal saline infusion. 3. If the blood pressure still remains suboptimal, consider changing amlodipine to Procardia. Also , this patient does have significant orthostatic hypotension. The patient to be placed on hydralazi ne that is an alpha deena/vasodilator with the possibility of this contributing to the patient's o rthostatic hypotension. HISTORY OF PRESENT ILLNESS: History is that of an 82-year-old female patient with many years histor y of hypertension, who was syncopized at home, noted to be hypotensive. The patient did have nausea and vomiting, raising the possibility of vasovagal phenomenon towards the time of this syncopal epi sode. The patient on presentation according to record, noted to be somewhat dehydration requiring I V fluid resuscitation; however, the blood pressure of this patient now did trend towards the hyperte nsive range with systolic in the 200 range. As a result of these blood pressure readings, decision has been taken to involve Renal in the management of this case. PAST MEDICAL HISTORY: Significant for hypertension. MEDICATIONS: Medications have been reviewed and as documented on [facility]. PAST MEDICAL HISTORY: Includes carotid artery disease, coronary artery disease, congestive heart fa ilure, history of CVA, seizure, hypothyroidism, essential tremors. SOCIAL HISTORY: Denies alcohol, tobacco or illicit drug use. FAMILY HISTORY: Not significantly related to the presenting illness. ALLERGIES: No known drug allergies. PHYSICAL EXAMINATION: GENERAL: The patient was found not to be in any obvious distress. Noted with the following vital s igns. VITAL SIGNS: Afebrile with temperature 98.3, pulse 57, blood pressure /75. HEENT: Unremarkable with moist oral mucosa. Neck is supple. No conjunctival injection or icterus. CARDIOVASCULAR SYSTEM: First and second heart sounds were heard. RESPIRATORY SYSTEM: Clear to auscultation. DIGESTIVE SYSTEM: Revealed a benign abdomen. EXTREMITIES: No peripheral edema. SKIN: No new gross rash. LYMPHATICS: No peripheral lymphadenopathy. SUMMARY: An 82-year-old female patient with labile hemodynamics, who presented here status post syn copal episode in the context of low blood pressure. Thank you for this consultation. We will follow with you.
[2017-07-30] MEDS ORDERED: Lisinopril 20 MG TAB PO SCH (09:00)
[2017-07-30] MEDS: Metoprolol Tartrate 50 MG TAB PO SCH (09:28)
[2017-07-30] MEDS: Amlodipine 5 MG TAB PO SCH (09:28)
[2017-07-30] MEDS: Primidone 50 MG TAB PO SCH ×2 (09:28→15:21)
[2017-07-30] MEDS: TICAGRELOR 90 MG TABLET PO SCH (09:29)
[2017-07-30] MEDS: Famotidine 20 MG TAB PO SCH (09:30)
[2017-07-30] MEDS: rOPINIRole HCl 0.5 MG TAB PO SCH ×2 (09:30→15:21)
[2017-07-30] MEDS: hydrALAZINE 25 MG TAB PO SCH ×2 (09:31→15:21)
[2017-07-30] MEDS: cefTRIAXone\\ROCEPHIN 1 GM, Admixture Fee 1 EACH in Sodium Chloride 0.9% 100 ML IVPB SCH (09:37)
--- NOTE | 2017-07-30 10:02 | PRG ---
DATE OF SERVICE: 07/30/2017 SUBJECTIVE: Ms. Ho was seen for labile hypertension. Her blood pressure is acceptable since t he patient is relatively asymptomatic. A 24-hour urine for catecholamines have been ordered and is currently pending. No new complaints today, no chest pain, no shortness of breath. OBJECTIVE: VITAL SIGNS: Blood pressure is ranging from 105/52 to as high as 171/77, heart rate 56, respiratory rate 16, temperature 97.9, and pulse ox 93%. GENERAL: Noted to be awake, alert, supine, and comfortable. SKIN: Adequate turgor. HEENT: Pinkish conjunctivae, anicteric sclerae. NECK: No neck mass, no carotid bruits, no JVD. CHEST: No deformities. LUNGS: Clear breath sounds. No wheezing, no crackles. HEART: Normal sinus rhythm. No murmur, no gallops, no rubs. ABDOMEN: Globular, soft, nontender. EXTREMITIES: No edema. MEDICATIONS: Reviewed. LABORATORY DATA: On 07/30/2017, white count 7.6, hemoglobin 11.7. Sodium 136, potassium 4, chlorid e 106, carbon dioxide 23, BUN 12, creatinine 0.81, glucose 95, calcium 8.7, and magnesium 1.9. ASSESSMENT AND PLAN: Labile hypertension - I doubt, she has secondary hypertension. However, a 24- hour urine for catecholamines, metanephrines have been ordered, they are pending. Continue current blood pressure medications. No new blood pressure medications will be introduced present time. I a gree with current management. If the patient will be discharged, I instructed to follow up with her primary care doctor at [facility].
[2017-07-30] MEDS ORDERED: Sodium Chloride 0.9% 500 ML IV SCH ×2 (10:15→14:30)
[2017-07-30 12:20] VITALS: TEMP 98.2
[2017-07-30 15:23] VITALS: BP 148/64
--- NOTE | 2017-07-30 17:03 | DIS ---
DATE OF ADMISSION: 07/25/2017 DATE OF DISCHARGE: 07/30/2017 DISCHARGE DIAGNOSES: 1. Orthostatic hypotension. 2. Syncope and collapse. 3. Chronic kidney disease. 4. Mild diastolic dysfunction without mention of heart failure. 5. Hypertension, essential. 6. Coronary artery disease. 7. Hyperlipidemia. 8. History of cerebrovascular disease with stroke in the past. 9. History of seizures. 10. 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 CONSULTATIONS: 1. Nephrology initially seen by Dr. Case and Dr. Delgado. 2. Neurology, Dr. Renetta Kendrick. 3. Dr. Benito Ureña with a cardiothoracic/vascular surgery. HISTORY AND PHYSICAL: Ms. Ho is a pleasant 82-year-old female, who was visiting in [place]. Around 8:30 in the morning, on the day of admission, she was sitting in a chair, she got up and sudd enly felt lightheaded and dizzy and passed out. She passed out for a few minutes and was groggy and was postictal. She had no tonic-clonic activity. EMS was activated and by the time of their arriv al, she was awake and speaking clearly, but appeared weak and tired. She also had one episode of vo miting. On their evaluation, she had a low blood pressure and was subsequently transported to our [facility] for further workup and evaluation. In the Emergency Department, there was a concern about seizure, so Neurology was consulted. Labs re main largely unremarkable otherwise, creatinine 1.27. HOSPITAL COURSE: The patient was seen and examined by Dr. Herndon. She was admitted. Elevated D-d epifanio was present, so CT angio was ordered to rule out pulmonary embolism that was unremarkable. She also was noted to have chronic kidney disease stage 3 and was given IV fluids and those were contin ued. She subsequently was placed on monitoring and watch. Overnight 07/25/2017 to 07/26/2017, she had no further spells. Carotid ultrasound was profound that showed left carotid bifurcation plaque with total or near occlusion of the left internal carotid ar jordon, and no hemodynamically significant stenosis of the right internal carotid artery. Dr. Ureña s aw her in consultation and recommended no surgical intervention. Echocardiogram was done that showe d ejection fraction of 60% to 65% with mild diastolic dysfunction. The patient subsequently remained stable through the day. She was seen by Dr. Kendrick on the evening o f 07/26/2017 and felt that she had a urinary tract infection and possible sepsis and they thought th at was more likely the cause. I do not think she had any seizure activity. We recommended follow u p with Neurology as an outpatient for further evaluation. Overnight 07/26/2017 to 07/27/2017, the patient remained stable. She was receiving IV fluids and th rosy were ultimately stopped on 07/28/2017. She had no further episodes of hypotension, though her o rthostatics were not followed regularly. She will continue with Rocephin for possible UTI. On 07/28/2017, she was feeling better and on 07/29/2017, she was seen by Nephrology. They recommend ed 24-hour urine for catecholamines, which at this time was currently pending. Otherwise, did not t hink she has any secondary cause of hypertension such as renal artery stenosis. Overnight 07/29/2017 to 07/30/2017, the patient remained stable. Mental status was normal. She had no further episodes and telemetry remained negative. She did have a slight orthostasis on the morn ing of discharge. She was given a half liter bolus of normal saline. Repeat orthostatics were daniela edly improved. She was discharged home on her home medications with instructions to drink plenty of fluids, given that she had fairly normal cardiac function and follow up with her primary care physi lidya for further cardiology, Neurology, Nephrology closer to home. PHYSICAL EXAMINATION: The patient was seen and examined on the day of discharge. Discharge plan, disposition were discussed with the patient and her daughter [id number] at the bed side. DISCHARGE MEDICATIONS: 1. Lipitor 10 mg p.o. at bedtime. 2. Levothyroxine 25 mcg daily. 3. Lisinopril 40 mg p.o. b.i.d. 4. Metoprolol tartrate 50 mg p.o. b.i.d. 5. Mysoline 50 mg p.o. t.i.d. 6. Quetiapine 50 mg p.o. b.i.d. 7. Brilinta 90 mg p.o. b.i.d. 8. Hydralazine 100 mg p.o. t.i.d. 9. Ropinirole 0.5 mg p.o. t.i.d. 10. Trazodone 50 mg p.o. at bedtime p.r.n. insomnia. FOLLOWUP APPOINTMENTS: 1. Primary care physician within a week. 2. Referrals recommended to Nephrology, Neurology, and Cardiology for further workup and evaluation . DISCHARGE CONDITION: Stable. DISPOSITION: Being discharged to home via private vehicle with her daughter. Return to Emergency Department for further episodes. DISCHARGE DIET: Heart-healthy diet with no added sodium. DISCHARGE ACTIVITY: Per cardiopulmonary limits.
--- OUTSIDE RECORDS SUMMARY | 2017-08-02 20:10 | XMS | Clinical Summary ---
:1935 Author Organization [facility] Address [address] [place] [address] Phone Care Team Providers Name Role Phone , Primary Care Provider Unavailable Allergies No Known Allergies Current Medications Prescription Sig. Disp. Refills Start Date End Date Status hydrALAZINE Take 100 mg by Active (APRESOLINE) 100 MG mouth 3 (three) tablet times daily. levothyroxine Take 25 mcg by Active (SYNTHROID, mouth Every LEVOTHROID) 25 MCG morning on an tablet empty stomach. lisinopril Take 40 mg by Active (PRINIVIL,ZESTRIL) 40 mouth 2 (two) MG tablet times daily. metoprolol (LOPRESSOR) Take 50 mg by Active 50 MG tablet mouth 2 (two) times daily. primidone (MYSOLINE) Take 50 mg by Active 50 MG tablet mouth 3 (three) times daily. QUEtiapine (SEROQUEL) Take 50 mg by Active 50 MG tablet mouth 2 (two) times daily. rOPINIRole (REQUIP) Take 0.5 mg by Active 0.5 MG tablet mouth 3 (three) times daily. traZODone (DESYREL) 50 Take 50 mg by Active MG tablet mouth nightly. ticagrelor (BRILINTA) Take 1 tablet 60 tablet 0 10/10/2016 Active 90 mg Tab tablet (90 mg total) by mouth 2 (two) times daily. aspirin 81 MG EC Take 1 tablet 0 10/10/2016 10/10/2017 Active tablet (81 mg total) by mouth daily. atorvastatin (LIPITOR) Take 1 tablet 30 tablet 0 10/10/2016 Active 20 MG tablet (20 mg total) by mouth nightly. Active Problems Problem Noted Date Syncope, unspecified syncope type 10/03/2016 Social History Tobacco Use Types Packs/Day Years Used Date Never Assessed Sex Assigned at Date Recorded Not on file Last Filed Vital Signs Vital Sign Reading Time Taken Blood Pressure 101/51 10/10/2016 12:00 PM [employer] Pulse 74 10/10/2016 12:00 PM [employer] Temperature 36.7 C (98 F) 10/10/2016 12:00 PM [employer] Respiratory Rate 18 10/10/2016 12:00 PM [employer] Oxygen Saturation 96% 10/10/2016 12:00 PM [employer] Inhaled Oxygen Concentration - - Weight 63.8 kg (140 lb 9.6 oz) 10/10/2016 12:00 AM [employer] Height 157.5 cm (5' 2") 10/09/2016 12:35 PM [employer] Body Mass Index 25.72 10/10/2016 12:00 AM [employer] Plan of Treatment Not on file Results Not on filefrom Last 3 Months
[2017-08-05 11:24] LABS: Metanephrine,Ur 98 ug/L (Undefined); Metanephrines Total-24H 100 ug/24 hr (45-290); Normetanephrine,Ur 276 ug/L (Undefined); Normetanephrines-24H U 283 ug/24 hr (82-500)
[2017-08-05 13:16] LABS: Epinephrine 24H Ur 4 ug/24 hr (0-20); Norephinephrine 24H U 29 ug/24 hr (0-135); Norephinephrine,Ur 28 ug/L (Undefined)
== END 2017-07-30 18:01 | disposition home or self-care (01) | DRG 312 ==
LOC: ERS 10:10 → 2NO 14:19 → OBSVTOIN 14:45
PROVIDERS: ADMIT Internal Medicine; ATTEND Internal Medicine
DX: I95.1 Orthostatic hypotension (principal); R56.9 Unspecified convulsions; N39.0 Urinary tract infection, site not specified; N18.3 Chronic kidney disease, stage 3 (moderate); I12.9 Hypertensive chronic kidney disease with stage 1 through stage 4 chronic kidney disease, or unspecified chronic kidney disease; I25.10 Atherosclerotic heart disease of native coronary artery without angina pectoris; E78.5 Hyperlipidemia, unspecified; Z86.73 Personal history of transient ischemic attack (TIA), and cerebral infarction without residual deficits; R79.1 Abnormal coagulation profile; I65.22 Occlusion and stenosis of left carotid artery; E03.9 Hypothyroidism, unspecified; F41.9 Anxiety disorder, unspecified; F32.9 Major depressive disorder, single episode, unspecified; E86.0 Dehydration; G25.0 Essential tremor
CPT/HCPCS: 36415; 51701; 70450; 71010; 71275; 80048; 80053; 80061; 81003; 81015; 82384; 82553; 83036; 83605; 83735; 83835; 83880; 84146; 84484; 85025; 85379; 85610; 85730; 87086; 93005; 93306; 93880; A4216; A4353; J0360; J0696; J7050